=== PATIENT | male | born 1950 | race Caucasian/White ===

== ENCOUNTER 2017-08-22 23:31 | Emergency (ER) | payer OTHER ==
[~2017-08-22] VITALS: Ht 177.8 cm; Wt 93.0 kg
[2017-08-22] MEDS ORDERED: TOPROL XL100 MG (23:44)
[2017-08-22] MEDS ORDERED: COZAAR 50 MG TA50 M2 (23:47)
[2017-08-22] MEDS ORDERED: ASPIRIN325 (23:47)
[2017-08-22] MEDS ORDERED: ALLOPURINOL 10100 M1 (23:48)
[2017-08-22] MEDS ORDERED: ACYCLOVIR 400400 MG (23:48)
[2017-08-22] MEDS ORDERED: ONDANSETRON HCL4 M2 (23:50)
[2017-08-22] MEDS ORDERED: TESSALON PERLE100 MG (23:51)
[2017-08-22] MEDS ORDERED: DEXAMETHASONE 44 M1 (23:52)
[2017-08-22] MEDS ORDERED: REVLIMID25 MG (23:53)
[2017-08-23 00:17] LABS: ABSOLUTE BASOPHILS 0.1 thou/uL (0.0-0.2); ABSOLUTE LYMPHOCYTES 1.7 thou/uL (0.8-5.3); ABSOLUTE MONOCYTES 0.9 thou/uL (0.0-1.2); EOSINOPHILS 0.8 %; HEMATOCRIT 30.5 % (42.0-52.0); HEMOGLOBIN 10.3 gm/dL (14.0-18.0); LYMPHOCYTES 29.6 %; MCH 31.2 pg (26.0-34.0); MCHC 33.8 g/dL (28.0-37.0); MCV 92.4 fL (80.0-100.0); MONOCYTES 16.4 %; MPV 8.2 fl. (7.2-11.1); NUCLEATED RBCS 0 /100WBC; PLATELET COUNT* 148 thou/uL (150-400); POLYS 52.2 %; RBC 3.31 mil/uL (4.50-6.00); RDW-CV 19.9 % (10.5-14.5); WBC 5.7 thou/uL (4.0-11.0)
[2017-08-23 00:34] VITALS: BP 130/70
[2017-12-21] MEDS ORDERED: ALPHA LIPOIC AC50 M1 PO (14:08)
[2017-12-21] MEDS ORDERED: ONDANSETRON HCL4 M2 PO (14:08)
[2017-12-21] MEDS ORDERED: MEGESTROL400 MG/11 PO (14:08)
== END 2017-08-23 00:34 | disposition home or self-care (01) ==
LOC: M.ERS 23:31
PROVIDERS: Physician Assistant
DX: K94.01 Colostomy hemorrhage (principal); I10 Essential (primary) hypertension; Z90.49 Acquired absence of other specified parts of digestive tract; Z85.038 Personal history of other malignant neoplasm of large intestine

== ENCOUNTER → 2017-12-21 | Emergency (ER) | payer OTHER ==
[~2017-12-21] VITALS: Ht 177.8 cm; Wt 77.1 kg
[~2017-12-21] MED LIST: ACYCLOVIR 400400 MG; ALLOPURINOL 10100 M1; ALPHA LIPOIC AC50 M1 PO; ASPIRIN325; COZAAR 50 MG TA50 M2; DEXAMETHASONE 44 M1; MEGESTROL400 MG/11 PO; ONDANSETRON HCL4 M2; ONDANSETRON HCL4 M2 PO; REVLIMID25 MG; TESSALON PERLE100 MG; TOPROL XL100 MG
[2017-12-21 14:34] LABS: ABSOLUTE EOSINOPHILS 0.1 thou/uL (0.0-0.7); ABSOLUTE LYMPHOCYTES 0.8 thou/uL (0.8-5.3); ABSOLUTE MONOCYTES 0.6 thou/uL (0.0-1.2); ABSOLUTE NEUTROPHILS 2.9 thou/uL (1.6-8.1); BASOPHILS 0.9 %; EOSINOPHILS 1.6 %; HEMATOCRIT 42.7 % (42.0-52.0); HEMOGLOBIN 14.4 gm/dL (14.0-18.0); LYMPHOCYTES 17.8 %; MCH 30.7 pg (26.0-34.0); MCHC 33.6 g/dL (28.0-37.0); MCV 91.4 fL (80.0-100.0); MONOCYTES 13.5 %; MPV 8.8 fl. (7.2-11.1); NUCLEATED RBCS 0 /100WBC; PLATELET COUNT* 124 thou/uL (150-400); POLYS 66.2 %; RBC 4.68 mil/uL (4.50-6.00); RDW-CV 16.3 % (10.5-14.5); WBC 4.4 thou/uL (4.0-11.0)
[2017-12-21 14:38] LABS: URINE BILIRUBIN NEGATIVE (Negative); URINE BLOOD TRACE (Negative); URINE CLARITY CLEAR; URINE COLOR DARK YELLOW; URINE GLUCOSE-RANDOM NEGATIVE (Negative); URINE KETONES TRACE (Negative); URINE LEUKOCYTES-REFLEX NEGATIVE (Negative); URINE NITRITE-REFLEX NEGATIVE (Negative); URINE PROTEIN NEGATIVE (Negative); URINE SPECIFIC GRAVITY >= 1.030 (1.005-1.030); URINE UROBILINOGEN 0.2 E.U./dl (0.2-1.0)
[2017-12-21 14:42] LABS: ANION GAP 17 mmol/L (7-16); BUN 18 mg/dL (7-18); CALCIUM 9.3 mg/dL (8.5-10.1); CHLORIDE 100 mmol/L (98-107); CO2 20 mmol/L (21-32); CREATININE 1.3 mg/dL (0.6-1.3); GLUCOSE 126 mg/dL (70-99); POTASSIUM 3.6 mmol/L (3.5-5.1); SODIUM 137 mmol/L (136-145)
[2017-12-21 14:52] LABS: ALBUMIN 3.9 g/dL (3.4-5.0); ALKALINE PHOSPHATASE 84 U/L (46-116); LIPASE 195 U/L (73-393); NT-PRO BRAIN NAT PEPTIDE 93 pg/mL (<300); SGOT 23 U/L (15-37); SGPT 41 U/L (30-65); TOTAL PROTEIN 7.6 g/dL (6.4-8.2); TROPONIN-I LEVEL <0.06 ng/mL (<0.06)
[2017-12-21 15:52] VITALS: BP 158/86
--- NOTE | 2017-12-22 14:46 | EKG ---
[place] [address] ELECTROCARDIOGRAM REPORT Name: MARYANN OSPINA JR Room: [employer]#: [id number] Admission: 12/21/17 Attend Phys: Discharge: Date of : 48 Report #: [id number] THIS REPORT FOR: //name// [facility] ED Test Date: 2017-12-21 Test Time: 14:31:05 Pat Name: MARYANN ADAMERUSSELLBal Department: Room: Gender: Policy Director: [place] : 1950 Requested By: Glory Padilla Order Number: [id number] MD: Aaron Samson Measurements Intervals [place] Rate: 99 P: 65 [place]: 143 QRS: 50 QRSD: 72 T: 30 QT: 343 QTc: 441 Interpretive Statements Sinus rhythm Borderline repolarization abnormality Baseline wander in lead(s) I,III,aVL,aVF No previous ECG available for comparison Electronically Signed On 12-22-2017 14:45:50 CDT by Aaron Samson [email or web address] <ELECTRONICALLY SIGNED> By: Aaron Samson MD, [facility] 12/22/17 1445 1431 1431 Aaron Samson MD, FACC /EPI
== END ==
LOC: M.ERS 14:01
PROVIDERS: Nurse Practitioner
DX: R10.13 Epigastric pain (principal); I10 Essential (primary) hypertension; Z90.49 Acquired absence of other specified parts of digestive tract

== ENCOUNTER → 2018-01-09 | Outpatient (CLI) | payer OTHER ==
[2018-01-09 08:35] LABS: ABSOLUTE LYMPHOCYTES 1.4 thou/uL (0.8-5.3); ABSOLUTE MONOCYTES 0.9 thou/uL (0.0-1.2); ABSOLUTE NEUTROPHILS 4.2 thou/uL (1.6-8.1); BASOPHILS 0.5 %; EOSINOPHILS 0.6 %; HEMATOCRIT 47.7 % (42.0-52.0); LYMPHOCYTES 21.6 %; MCH 31.7 pg (26.0-34.0); MCHC 33.5 g/dL (28.0-37.0); MCV 94.8 fL (80.0-100.0); MONOCYTES 13.2 %; MPV 8.6 fl. (7.2-11.1); NUCLEATED RBCS 0 /100WBC; PLATELET COUNT* 197 thou/uL (150-400); POLYS 64.1 %; RBC 5.03 mil/uL (4.50-6.00); RDW-CV 16.2 % (10.5-14.5); WBC 6.5 thou/uL (4.0-11.0)
[2018-01-09 08:42] LABS: CALCIUM 10.2 mg/dL (8.5-10.1); CREATININE 1.2 mg/dL (0.6-1.3)
== END ==
LOC: M.LAB 06:54
PROVIDERS: Anesthesiology
DX: C90.00 Multiple myeloma not having achieved remission (principal)

== ENCOUNTER → 2018-01-16 | Outpatient (CLI) | payer OTHER | LOC: M.NUC 06:42 | DX: K31.84 Gastroparesis (principal) ==

== ENCOUNTER → 2018-01-17 | Outpatient (CLI) | payer OTHER | LOC: M.LAB 01-14 08:30 → M.CT 01-14 09:30 → M.LAB 01-16 12:00 → M.CT 09:02 | DX: K80.20 Calculus of gallbladder without cholecystitis without obstruction (principal); N28.9 Disorder of kidney and ureter, unspecified; M16.11 Unilateral primary osteoarthritis, right hip; M47.816 Spondylosis without myelopathy or radiculopathy, lumbar region; R63.4 Abnormal weight loss; Z85.79 Personal history of other malignant neoplasms of lymphoid, hematopoietic and related tissues ==

== ENCOUNTER 2018-06-24 11:48 | Inpatient (IN) | payer OTHER ==
[~2018-06-24] VITALS: Ht 175.3 cm; Wt 63.2 kg
--- NOTE | ~2018-06-24 | CON ---
[address] [address] CONSULTATION Name: SHEABalMARYANN JR Room: [address] IN .R.#: [id number] Admission: 06/24/18 Attend Phys: Mima Pereira Discharge: Date of : 48 Report #: [id number] THIS REPORT FOR: //name// CC: Gina Severino HISTORY OF PRESENT ILLNESS: The patient is a 68-year-old male who recently underwent a stem cell transplant for multiple myeloma. The patient states that in the past month, he has just become weaker and weaker, but even prior to that, the patient had a significant weight loss. He has lost approximately 40 pounds. I had some difficulty determining over what time this weight loss occurred. He told me that it had occurred over several months and then at one point, he told me it occurred over 1 or 2-month period and he is still losing weight. He states that whenever he tries to eat, he feels full. He has had some vomiting. When I spoke to the patient, he was about to have an EGD. The patient also states that he is just generally weak. Most of the weakness is in the lower extremities. He states that prior to the stem cell transplant. He was active, but for the past month has done nothing more than go from his chair to the bathroom. PAST MEDICAL HISTORY: Multiple myeloma. PAST SURGICAL HISTORY: Stem cell transplant, appendectomy. MEDICATIONS: Alpha lipoic acid 50 mg daily, ondansetron 4 mg p.r.n., nystatin swish and swallow four times a day, escitalopram 20 mg daily, trimethoprim 25 grams daily. ALLERGIES: ACYCLOVIR. PHYSICAL EXAMINATION: VITAL SIGNS: Temperature is 36.7, pulse rate 90, respiratory rate 16, blood pressure 105/59, bedside pulse oximetry 99% on room air. LABORATORY DATA: Hematology: White blood cell count 6.6, hemoglobin 13.3, hematocrit 39.8, MCV 96.7, platelet count 87,000. Urinalysis not received. Chemistry: Sodium 132, potassium 4.7, chloride 99, carbon dioxide 23, BUN 34, creatinine 1.7, GFR 40, glucose 132, calcium 9.6, magnesium 1.8, total bilirubin 0.8, AST 30, ALT 36, alkaline phosphatase 335, total protein 9.4, albumin 3.4. NEUROLOGIC: Cranial nerves 2-12 are grossly intact. Motor exam demonstrates symmetrical strength in the upper and lower extremities. The patient was able to raise his arms above his head. He was able to lift his legs from the bed. Reflexes are trace in the upper and lower extremities. Plantar responses are flexor. Coordination demonstrates no evidence of dysmetria. [place] [address] CONSULTATION Name: SHEAMARYANN Selby Room: [address] IN [facility]#: [id number] Admission: 06/24/18 Attend Phys: Mima Pereira Discharge: Date of : 48 Report #: [id number] IMPRESSION AND PLAN: The patient has an MRI of the head ordered; however, I have ordered an MRI of the total spine to make certain that he does not have some type of compression abnormality causing the weakness. I suspect there is also a component of debility because the patient has done very little in the way of physical exercise in the past month. He freely admits that he has been sitting and only getting up from the chair to do the most basic of daily activities. Therapy has been ordered and this should be very important. Rehabilitation has also been consulted. I have also ordered B12 and thyroid just to make certain there is nothing else that would cause the generalized weakness. Thank you for your kind referral of the patient and will continue to follow him with you. By: 1059 1135Emma Batres DO /nt
[2018-06-24 11:49] VITALS: BP 121/71
[2018-06-24] MEDS ORDERED: NYSTATIN100000 UNI SW&SWALLOW (11:58)
[2018-06-24] MEDS ORDERED: LEXAPRO 10 MG T10 M1 PO (11:59)
[2018-06-24] MEDS ORDERED: [UNRECOGNIZED DRUG - OTHER] PO (12:01)
[2018-06-24 12:43] LABS: HEMATOCRIT 39.8 % (42.0-52.0); HEMOGLOBIN 13.3 gm/dL (14.0-18.0); MCH 32.2 pg (26.0-34.0); MCHC 33.3 g/dL (28.0-37.0); MCV 96.7 fL (80.0-100.0); NUCLEATED RBCS 0 /100WBC; PLATELET COUNT* 87 thou/uL (150-400); RBC 4.12 mil/uL (4.50-6.00); RDW-CV 17.5 % (10.5-14.5); WBC 6.6 thou/uL (4.0-11.0)
[2018-06-24 12:58] LABS: CALCIUM 9.6 mg/dL (8.5-10.1); CREATININE 1.7 mg/dL (0.6-1.3); POTASSIUM 4.7 mmol/L (3.5-5.1)
[2018-06-24 13:03] LABS: ABSOLUTE EOSINOPHILS 0.1 thou/uL (0.0-0.7); ABSOLUTE LYMPHOCYTES 0.7 thou/uL (0.8-5.3); ABSOLUTE MONOCYTES 0.5 thou/uL (0.0-1.2); ABSOLUTE NEUTROPHILS 5.3 thou/uL (1.6-8.1); ALBUMIN 3.4 g/dL (3.4-5.0); ANISOCYTOSIS 1+; PLATELET ESTIMATE DECREASED; TOTAL BILIRUBIN 0.8 mg/dL (<0.1-1.0); TOTAL PROTEIN 6.4 g/dL (6.4-8.2)
[2018-06-24 14:08] VITALS: BP 117/63
[2018-06-24 14:25] VITALS: BP 112/66
--- NOTE | 2018-06-24 16:27 | EKG ---
[place] [address] ELECTROCARDIOGRAM REPORT Name: MARYANN OSPINA JR Room: [address] ADM IN M.R.#: [id number] Admission: 06/24/18 Attend Phys: Mima Pereira Discharge: Date of : 48 Report #: [id number] THIS REPORT FOR: //name// [facility] ED Test Date: 2018-06-24 Test Time: 11:56:31 Pat Name: MARYANN OSPINA Department: Room: [address] Gender: M [employer] Member: Will MAXWELL : 1950 Requested By: Kerry Laura Order Number: [id number] Dontae MD: Michael Hair Measurements Intervals [place] Rate: 118 P: 84 [place]: 163 QRS: 73 QRSD: 100 T: 71 QT: 324 QTc: 455 Interpretive Statements Sinus tachycardia Right atrial enlargement, possible Borderline ST elevation, anterior leads Artifact in lead(s) II,III,aVF Compared to ECG 12/21/2017 14:31:05 Atrial abnormality now present ST (T wave) deviation now present Sinus rhythm no longer present Electronically Signed On 06-24-2018 16:27:15 STAFF NURSE MIDWIFE by Michael Hair [email or web address] <ELECTRONICALLY SIGNED> By: Michael Hair MD, FACC 06/24/18 1627 1156 1156 Michael Hair MD, FACC /EPI
[2018-06-24 16:52] VITALS: BP 107/63
[2018-06-24 20:00] VITALS: BP 105/59
[2018-06-25 08:35] VITALS: BP 105/59
[2018-06-25 16:00] VITALS: BP 141/68
[2018-06-25 16:20] VITALS: BP 139/72
[2018-06-25 16:34] VITALS: BP 139/72
[2018-06-25 16:58] VITALS: BP 139/76
--- NOTE | 2018-06-27 14:07 | PATH ---
[address] [address] PATHOLOGY RPT PROCEDURE Name: CM OSPINA Room: [address] IN M.R.#: [id number] Admission: 06/24/18 Date of : 48 Discharge: 06/25/18 Report #: [id number] Path Case #: [id number] [facility] Accession Number: [id number] . 01 Material submitted: . PART A: SMALL BOWEL BIOPSY RULE OUT GVHD PART B: GASTRIC BIOPSY RULE OUT GVHD . 01 Clinical history: . None provided . 02 Diagnosis: A. Small bowel biopsy: - Benign small intestinal mucosa with nonspecific ulceration, negative for granulomas, viral inclusions and dysplasia. See comment. . B. Gastric biopsy: - Nonspecific, focal active gastritis, negative for granulomas, Helicobacter pylori organisms and dysplasia. See comment. . (ALBERT:manohar; 06/26/18) QL/06/26/2018 . 02 Comment: Although not specific for it, the small intestine and gastric biopsies both show features which can be seen with xnwdl-eexkry-rdtp disease. There is no significant basal lymphoplasmacytosis in the small intestinal biopsy to elevate a suspicion for Crohn's disease, although this also cannot be entirely excluded. . Special stain (B): H. pylori immuno. . (ALBERT:mml; 06/26/18) . 02 Electronically signed: . Dean Rojas MD, Pathologist NPI- [id number] . 01 Gross description: . A. Received in formalin labeled "Cm Ospina Jr, small bowel biopsy, rule out GVHD," are multiple segments of rosenberg soft tissue measuring 1.5 x 0.4 x 0.1 cm in aggregate dimensions. The specimen is filtered and entirely submitted in cassette A1. . B. Received in formalin labeled "Cm Ospina Jr, gastric biopsy, rule out GVHD," are 3 segments of rosenberg soft tissue measuring 1.2 x 1.0 x 0.2 cm in aggregate dimensions and ranging from 0.3 to 0.8 cm in maximum dimension. The specimen is submitted entirely [place] [address] PATHOLOGY RPT PROCEDURE Name: CM OSPINA JR Room: [address] IN M.R.#: [id number] Admission: 06/24/18 Date of : 48 Discharge: 06/25/18 Report #: [id number] Path Case #: [id number] (TSD; 06/25/2018) TOB/TOB . 02 Pathologist provided ICD-10: K63.3, K29.60 . 02 CPT . 837666, 095620, P56381 Specimen Comment: A courtesy copy of this report has been sent to Specimen Comment: [phone], , . Specimen Comment: Report sent to ,DR LINN / DR LAYTON Specimen Comment: A duplicate report has been generated due to demographic updates. Performed at: 01 [facility] [address], [place], [place] [id number] MD Tu Melo MD Phone: [phone] Performed at: [address] [facility] [place] [address] [place], [place] [id number] MD Dean Rojas MD Phone: [phone]
== END 2018-06-25 17:07 | disposition short-term general hospital (02) | DRG 64 ==
LOC: M.ERS 11:48 → M.ORTHSURG 13:29 → M.TBA-ER 13:29 → M.ORTHSURG 13:59
PROVIDERS: Personal Emergency Response Attendant; ADMIT Internal Medicine
PROC: 0DB68ZX Excision of Stomach, Via Natural or Artificial Opening Endoscopic, Diagnostic (ICD-10-PCS; principal; 2018-06-25)
PROC: 0DB98ZX Excision of Duodenum, Via Natural or Artificial Opening Endoscopic, Diagnostic (ICD-10-PCS; principal; 2018-06-25)
DX: I62.00 Nontraumatic subdural hemorrhage, unspecified (principal); N17.0 Acute kidney failure with tubular necrosis; C90.00 Multiple myeloma not having achieved remission; Z94.84 Stem cells transplant status; K26.9 Duodenal ulcer, unspecified as acute or chronic, without hemorrhage or perforation; I12.9 Hypertensive chronic kidney disease with stage 1 through stage 4 chronic kidney disease, or unspecified chronic kidney disease; N18.3 Chronic kidney disease, stage 3 (moderate); R63.4 Abnormal weight loss; R68.81 Early satiety; Z68.20 Body mass index [BMI] 20.0-20.9, adult; Z85.038 Personal history of other malignant neoplasm of large intestine; Z90.49 Acquired absence of other specified parts of digestive tract; Z79.899 Other long term (current) drug therapy; Z88.8 Allergy status to other drugs, medicaments and biological substances

== ENCOUNTER 2018-07-01 16:20 | Inpatient (IN) | payer OTHER ==
[~2018-07-01] VITALS: Ht 175.3 cm; Wt 63.0 kg
[~2018-07-01 16:20] MED LIST changes: +LEXAPRO 10 MG T10 M1 PO; +NYSTATIN100000 UNI SW&SWALLOW; +[UNRECOGNIZED DRUG - OTHER] PO
[2018-07-01 16:25] VITALS: BP 135/81
[2018-07-01] MEDS ORDERED: TYLENOL325 MG PO (16:30)
[2018-07-01] MEDS ORDERED: OXYCODONE HCL 55 MG PO (16:31)
[2018-07-01] MEDS ORDERED: LOPERAMIDE 2 MG2 M1 PO (16:31)
[2018-07-01] MEDS ORDERED: KEPPRA 500 MG500 M1 PO (16:31)
[2018-07-01] MEDS ORDERED: AFRIN15 ML NASAL (16:32)
[2018-07-01] MEDS ORDERED: BACTRIM DS TAB1 EACH PO (16:33)
[2018-07-01] MEDS ORDERED: PRESERVISION A1 EAC2 PO (16:33)
[2018-07-01] MEDS ORDERED: UNICOMPLEX M TA1 TA1 PO (16:33)
[2018-07-01] MEDS ORDERED: VALACYCLOVIR500 MG PO (16:33)
[2018-07-01 17:23] LABS: ABSOLUTE BASOPHILS 0.1 thou/uL (0.0-0.2); ABSOLUTE EOSINOPHILS 0.1 thou/uL (0.0-0.7); ABSOLUTE LYMPHOCYTES 0.4 thou/uL (0.8-5.3); ABSOLUTE MONOCYTES 0.5 thou/uL (0.0-1.2); ABSOLUTE NEUTROPHILS 5.8 thou/uL (1.6-8.1); BASOPHILS 0.9 %; EOSINOPHILS 0.7 %; HEMATOCRIT 33.7 % (42.0-52.0); HEMOGLOBIN 11.5 gm/dL (14.0-18.0); LYMPHOCYTES 6.3 %; MCH 32.8 pg (26.0-34.0); MCHC 34.1 g/dL (28.0-37.0); MCV 96.4 fL (80.0-100.0); MONOCYTES 6.9 %; MPV 7.9 fl. (7.2-11.1); NUCLEATED RBCS 0 /100WBC; PLATELET COUNT* 103 thou/uL (150-400); POLYS 85.2 %; RDW-CV 16.8 % (10.5-14.5); WBC 6.8 thou/uL (4.0-11.0)
[2018-07-01 17:32] LABS: CALCIUM 9.1 mg/dL (8.5-10.1); CREATININE 1.1 mg/dL (0.6-1.3); INR 1.1; POTASSIUM 4.3 mmol/L (3.5-5.1); PROTIME 11.3 Seconds (9.20-11.50)
[2018-07-01 17:36] LABS: TOTAL BILIRUBIN 0.7 mg/dL (<0.1-1.0)
[2018-07-01 19:38] LABS: URINE BILIRUBIN NEGATIVE (Negative); URINE BLOOD NEGATIVE (Negative); URINE CLARITY CLEAR; URINE COLOR YELLOW; URINE GLUCOSE-RANDOM NEGATIVE (Negative); URINE KETONES NEGATIVE (Negative); URINE LEUKOCYTES-REFLEX NEGATIVE (Negative); URINE NITRITE-REFLEX NEGATIVE (Negative); URINE PROTEIN NEGATIVE (Negative); URINE SPECIFIC GRAVITY >= 1.030 (1.005-1.030); URINE UROBILINOGEN 0.2 E.U./dl (0.2-1.0)
[2018-07-01 19:45] VITALS: BP 128/80
[2018-07-01 20:30] VITALS: BP 149/66
--- NOTE | 2018-07-01 23:32 | NUR ---
PT ADMITTED TO ROOM 104 AT 2015 FOR WEAKNESS AND FALL. PT ALERT AND ORIENTED X4, DENIES PAIN OR DISCOMFORT. PT DENIES VISUAL DISTURBANCE OR VERIGO. PT TRANSFERERED FROM [place] TO BED WITH ASSIST BY STAFF. PT HAS SMALL ABRAISION ON FORHEAD WHERE HE HIT HEAD DURING FALL AT HOME. PT REPORTED MILD HEADACH RATED AT [address] WYATT ON UNIT. RECIEVED ORDER FOR TYLENOL PRN. PT GIVEN 650 NG TYLENOL PO. PT RESTING QUIETLY IN BED AT THIS TIME. PT INSTRUCTED TTO CALL FOR ASSISTANCE BEFORE GETTING UP. CALL IGHT IN REACH, PT USING APPROPRIATELY.
[2018-07-02 00:32] VITALS: BP 106/60
[2018-07-02 03:49] VITALS: BP 115/55
[2018-07-02 09:45] VITALS: BP 112/63
[2018-07-02 12:56] VITALS: BP 100/67
--- NOTE | 2018-07-02 16:11 | NUR ---
SPOKE WITH PT.AND AT BEDSIDE. PT.UP IN CHAIR. HE WAS ALERT AND ORIENTED. STATED HE WAS DISCHARGED YESTERDAY FROM AND FELL A LITTLE WHILE LATER WALKING UP THE STEPS. LIVES WITH HIS . HE USES A WALKER AND HAS A WC. HE WOULD LIKE TO GO TO OUR INPT.REHAB UNIT. EXPLAINED INSURANCE WILL NEED TO AUTHORIZE HIM TO GO TO INPT.REHAB. ASKED WHAT IF THEY SAY NO. TOLD HER WE WOUDL NEED TO HAVE A PLAN B,SUCH A NURSING FACILITY. INFORMED THEM OF [facility] CONTRACTED FACILITIES. CM WILL FOLLOW.
[2018-07-02 16:13] VITALS: BP 110/68
--- NOTE | 2018-07-02 16:54 | NUR ---
RECEIVED CONSULT FOR POSSIBLE REHAB ADMISSION. CONSULT HAS BEEN ACKNOWLEDGED BY IN FLIGHT REFUELING MANAGER AND DR. CIFUENTES. PATIENT ADMITTED AFTER ALL FALL DOWN SOME STAIRS AT HOME STRIKING HIS HEAD. PATIENT WAS JUST DISCHARGED 2 DAYS AGO FROM [facility] AFTER BEING TREATED FOR A SDH. FURTHER MEDICAL WORKUP IS PENDING. PT/OT/ST EVALUATIONS PENDING. WILL FOLLOW. THANK YOU FOR THIS CONSULT.
--- NOTE | 2018-07-02 17:55 | NUR ---
ASSUMED CARE OF PATIENT AFTER MORNING REPORT AT APPROX 0720. ALERT AND ORIENTED X4. ASSESSMENT COMPLETED AND CHARTED. VSS ON ROOM AIR. NO COMPLAINTS OF PAIN, NAUSEA, OR SOA. NEUTROPENIC PRECAUTIONS IN PLACE. NO NEUROLOGICAL CHANGES THROUGHOUT SHIFT. PATIENT RESTED COMFORTABLY IN BED AND IN THE CHAIR TODAY. HOURLY ROUNDS MAINTAINED, CALL LIGHT WITHIN REACH, NURSING WILL CONTINUE TO MONITOR.
[2018-07-02 20:00] VITALS: BP 128/65
--- NOTE | 2018-07-03 04:11 | NUR ---
ASSUMED PATIENT CARE AT 1900. PATIENT IS A VERY PLEASANT MALE, ALERT AND ORIENTED TIMES FOUR. NO COMPLAINTS OF PAIN OR DISCOMFORT NOTED. USES URINAL. RESTED IN BED THROUGHOUT THE NIGHT. NEUTROPENIC PRECAUTIONS MAINTAINED THROUGH SHIFT. IV PATENT. FALL RISK PRECAUTIONS IN PLACE. HOURLY ROUNDING COMPLETED DOCUMENTED. HEBREW CANTOR COMPLETED DOCUMENTED.
[2018-07-03 04:39] LABS: HEMATOCRIT 28.9 % (42.0-52.0); HEMOGLOBIN 9.9 gm/dL (14.0-18.0); MCHC 34.2 g/dL (28.0-37.0); MCV 96.3 fL (80.0-100.0); MPV 8.4 fl. (7.2-11.1); RDW-CV 16.9 % (10.5-14.5); WBC 4.5 thou/uL (4.0-11.0)
[2018-07-03 04:44] LABS: CALCIUM 8.6 mg/dL (8.5-10.1); CREATININE 0.9 mg/dL (0.6-1.3); POTASSIUM 3.6 mmol/L (3.5-5.1)
[2018-07-03 09:30] VITALS: BP 106/57
--- NOTE | 2018-07-03 12:12 | NUR ---
NEW ORDER RECEIVED FOR COGNITIVE EVALUATION. PT TOLD ST THAT COGNITIVE AND SWALLOW EVALS COMPLETED YESTERDAY. ST VISITED WITH RN, WHO STATED NO CHANGE SINCE ORDERS YESTERDAY. DUPLICATE ORDER. NO ST RECOMMENDED AT THIS TIME. EDUCATION PROVIDED TO PT AND FAMILY THAT PT IS REHAB CONSULT AND ST MAY RE-EVALUATE IF TRANSFERRED TO REHAB FLOOR TO FACILITATE SAFE RETURN HOME TO [facility].
[2018-07-03 12:19] VITALS: BP 100/59
--- NOTE | 2018-07-03 15:00 | NUR ---
AWAITNG INSURANCE AUTH FOR PT.TO GO TO REHAB. DISCUSSED WITH PT., AND CHILDREN. GAVE AND DISCUSSED LIST OF SNFS THAT CONTRACT WITH HIS INSURANCE AND ALSO A BROCHURE ON [employer]. THEY SAID THEY WOULD LOOK AT INFORMATION IN CASE INSURANCE DENIES ACUTE INPT.REHAB.
[2018-07-03 16:20] VITALS: BP 109/57
--- NOTE | 2018-07-03 16:30 | NUR ---
RECEIVED CONSULT FOR POSSIBLE REHAB ADMISSION. CONSULT HAS BEEN ACKNOWLEDGED BY TAB CUTTER AND DR. CIFUENTES. PATIENT HAD RECENT SDH WITH [facility]. PATIENT FELL GOING UP HIS STAIRS AT HOME STRIKING HIS HEAD APPROXIMATELY 2 HOURS AFTER BEING DISCHARGED FROM OUT[facility]IDE HOSPITAL FROM SDH STAY. PATIENT DX WITH CLOSED HEAD INJURY HE IS DEBLITATED WITH THERAPY NEEDS. RECOMMEND INPT ACUTE REHAB FOR MEDICAL MANAGEMENT AND THERAPIES FOR STRENGTHENING AND ENDURANCE. HAVE INITIATED INSURANCE AUTH. CONTACTED [facility] AND INFORMED OF ACCEPTANCE TO REHAB PENDING INSURANCE AUTH. THANK YOU FOR THIS REFERRAL.
--- NOTE | 2018-07-03 17:22 | NUR ---
PT REMAINED ALERT AND ORIENTED. PT IS ON ROOM AIR. NEUTROPENIC PRECAUTIONS MAINTAINED. FOLIC ACID AND IV IRON SUCROSE GIVEN ORDERED. PT DENIED ANY PAIN, N/V THIS SHIFT. FALL RISK PRECAUTIONS IN PLACE. HOURLY ROUNDING COMPLETED. WILL CONTINUE TO MONITOR.
[2018-07-03 21:04] VITALS: BP 109/53
--- NOTE | 2018-07-04 04:59 | NUR ---
ASSUMED CARE OF PATIENT AFTER REPORT AT APPROX 1930. ALERT AND ORIENTED X4. ASSESSMENT COMPLETED AND CHARTED. VSS ON ROOM AIR. NO COMPLAINTS OF PAIN, NAUSEA, OR SOA. PATIENT VOIDING PER URINAL, COLOSTOMY CARE PROVIDED X2 THIS SHIFT. PATIENT RESTING COMFORTABLY IN BED UPON ROUNDS. HOURLY ROUNDS COMPLETED, CALL IGHT IN REACH, FALL PRECAUTIONS IN PLACE, NURSING WILL CONTNINUE TO MONITOR.
[2018-07-04 08:28] VITALS: BP 111/54
[2018-07-04 16:13] VITALS: BP 104/48
--- NOTE | 2018-07-04 16:39 | NUR ---
SPOKE WITH PT.AND . TOLD THEM, REHAB LIASON,HAS NOT HEARD BACK YET FROM INSURANCE ABOUT REHAB. DID SAY THEY WOULD GO TO [facility] IF INSURANCE SAYS NO TO REHAB. WILL FOLLOW.
--- NOTE | 2018-07-04 16:51 | NUR ---
PT REMAINED ALERT AND ORIENTED THIS SHIFT. PT IS SALINE LOCKED IN LT WRIST. NEUTROPENIC PRECAUTIONS MAINTAINED. FALL RISK PRECAUTIONS IN PLACE. HOURLY ROUNDING COMPLETED. AWAITING APPROVAL FOR REHAB PLACEMENT. WILL CONTINUE TO MONITOR.
--- NOTE | 2018-07-04 17:26 | NUR ---
CONTINUING TO FOLLOW PATIENT ALONG WITH DR. CIFUENTES. RECEIVED CALL FROM INSURANCE STATES INSURANCE AUTH IS PRELIMINARILY DENIED UNTIL REHAB PHYSICIAN CAN CALL AND SPEAK TO INSURANCE PHYSICIAN ON SATURDAY. NOTIFIED PATIENTS NURSE.
[2018-07-04 21:30] VITALS: BP 107/52
[2018-07-05 00:45] VITALS: BP 133/62
[2018-07-05 04:48] LABS: HEMATOCRIT 30.7 % (42.0-52.0); HEMOGLOBIN 10.3 gm/dL (14.0-18.0); MCH 32.5 pg (26.0-34.0); MCHC 33.7 g/dL (28.0-37.0); MCV 96.6 fL (80.0-100.0); RBC 3.17 mil/uL (4.50-6.00); WBC 6.9 thou/uL (4.0-11.0)
[2018-07-05 05:19] LABS: CALCIUM 8.9 mg/dL (8.5-10.1); POTASSIUM 4.2 mmol/L (3.5-5.1)
--- NOTE | 2018-07-05 05:57 | NUR ---
UP WITH WALKER, GAIT BELT AND 1 ASSIST. ALERT AND ORIENTED X4. REMAINS ON NUETROPENIC PRECAUTIONS. ILEOSTOMY LEAKING AND CHANGED DURING NIGHT. RESTING QUIETLY ON HOURLY ROUNDS. CALL LIGHT WITHIN REACH. WILL CONTINUE TO MONITOR.
[2018-07-05 08:50] VITALS: BP 117/71
[2018-07-05 16:00] VITALS: BP 114/63
--- NOTE | 2018-07-05 16:57 | NUR ---
pt remained alert and oriented this shift. pt colostomy bag leaked, new one applied today. pt denied any further needs this shift. fall risk precautions in place. hourly rounding completed. will continue to monitor.
[2018-07-05 20:00] VITALS: BP 115/63
--- NOTE | 2018-07-06 05:44 | NUR ---
ALERT AND ORIENTEDX4. AMBULATES TO BATHROOM WITH WALKER GAIT BELT AND 1 ASSIST. RESTING QUIETLY IN BED ON HOURLY ROUNDS. DENIES NEED FOR PAIN OR NAUSEA MEDICATIONS.ILEOSTOMY PATENT AT THIS TIME. REMAINS ON NEUTROPENIC PRECAUTIONS. CALL LIGHT WITHIN REACH.
[2018-07-06 08:00] VITALS: BP 114/65
[2018-07-06 16:02] VITALS: BP 106/65
--- NOTE | 2018-07-06 17:42 | NUR ---
PATIENT ALERT AND ORIENTED X 4. VITAL SIGNS STABLE ON ROOM AIR. AFEBRILE. UP WITH ASSIST OF ONE TO THE BATHROOM. IV PATENT AND SALINE LOCKED. DENIES PAIN AND NAUSEA. UP TO CHAIR FOR LUNCH AND DINNER. FALL PRECAUTIONS IN PLACE AND BED ALARM ON. HOURLY ROUNDS MAINTAINED THROUGHOUT THE SHIFT. CALL LIGHT WITHIN REACH. NURSING WILL CONTINUE TO MONITOR.
[2018-07-06 21:00] VITALS: BP 112/67
--- NOTE | 2018-07-07 06:02 | NUR ---
ALERT AND ORIENTED X4, UP WITH WALKER A GAIT BELT AND 1 ASSIST TO BATHROOM. ILEOSTOMY PATENT WITH SOFT BROWN STOOL. DENIES NEED FOR PAIN OR NAUSEA MEDICAITON. INCISION WITH JAYNA ON TOP OF HEAD HEALING WITH NO S/S OF REDNESS OR DRAINAGE. REMAINS ON NEUTOPENIC PRECAUTIONS. CALL LIGHT WITHIN REACH.
[2018-07-07 08:00] VITALS: BP 123/62
--- NOTE | 2018-07-07 12:18 | NUR ---
FAXED REFERRAL TO [facility] IN CASE INSURANCE CONTINUES TO DENY ACUTE REHAB. TO SPEAK WITH INSURANCE TODAY.
[2018-07-07 16:00] VITALS: BP 132/58
--- NOTE | 2018-07-07 16:28 | NUR ---
CONTINUING TO FOLLOW PATIENT ALONG WITH DR. CIFUENTES. INSURANCE DENIED ACUTE REHAB ADMISSION AND PEER TO PEER. APPEAL INITIATED. PATIENT CONTINUES TO PARTICIAPTE IN THERAPIES. WILL FOLLOW AND PLAN TO ADMIT TO REHAB PENDING APPEAL DECISION.
--- NOTE | 2018-07-07 16:59 | NUR ---
PT AWAITING REHAB PLACEMENT. PT UP IN CHAIR WITH SB ASSIST. TOLERATING PO WELL. ILEOSTOMY DRAINING LIQUID STOOL. UPDATED ON PLAN OF CARE
[2018-07-07 19:30] VITALS: BP 117/59
--- NOTE | 2018-07-07 21:03 | NUR ---
RECIEVED REPORT AND ASSUMED CARE OF PT AT 1930. PT RESTING QUIETLY IN BED WATCHING TV. PT DENIED PAIN OR DISCOMFORT. HS MEDS GIVEN PER EMAR. CALL LIGHT IN REACH, PT DEMONSTRATES PROPER USE.
[2018-07-08 04:08] LABS: HEMATOCRIT 33.6 % (42.0-52.0); HEMOGLOBIN 11.2 gm/dL (14.0-18.0); MCH 32.4 pg (26.0-34.0); MCHC 33.4 g/dL (28.0-37.0); MCV 97.2 fL (80.0-100.0); MPV 8.7 fl. (7.2-11.1); RBC 3.45 mil/uL (4.50-6.00); RDW-CV 17.3 % (10.5-14.5); WBC 5.1 thou/uL (4.0-11.0)
[2018-07-08 04:18] LABS: CALCIUM 9.3 mg/dL (8.5-10.1); CREATININE 1.2 mg/dL (0.6-1.3); POTASSIUM 4.2 mmol/L (3.5-5.1)
[2018-07-08 08:20] VITALS: BP 105/64; BP 111/62
[2018-07-08 15:29] VITALS: BP 105/54
--- NOTE | 2018-07-08 16:12 | NUR ---
PATIENT REMAINS ALERT AND ORIENTED. DENIES PAIN. TOLERATING DIET. SUPPLEMENTS ORDERED. UP WITH ASSIST OF 1,GB, AND WALKER. ILEOSTOMY INTACT WITH STOOL NOTED. VOIDING PER URINAL. AWAITING REHAB PLACEMENT. FAMILY AT BEDSIDE. WILL CONTINUE TO MONITOR.
[2018-07-08 20:00] VITALS: BP 107/62
--- NOTE | 2018-07-09 04:40 | NUR ---
PT A&Ox4. VITALS STABLE. OX 99% ON RA. UP TO BATHROOM WITH GAITBELT AND WALKER. ILIOSTOMY EMPTIED ON SHIFT. IV L HAND PATENT, SL. DENIED PAIN. SITE ON HEAD WHERE STAPLE WERE TAKEN OUT IS CLEAN, INTACT. SLEPT MOST OF THE NIGHT. CALL LIGHT WITHIN REACH. HOURLY ROUNDING COMPLETE. FALL PRECAUTIONS IN PLACE. WILL CONTINUE TO MONITOR.
--- NOTE | 2018-07-09 06:42 | NUR ---
REVIEWED AND AGREE WITH ALL ASSESSMENTS AND CHARTING COMPLETED BY VIVIENNE ORDOÑEZ.
[2018-07-09 08:36] VITALS: BP 119/75
--- NOTE | 2018-07-09 14:00 | NUR ---
[facility] SAID THEY ARE STILL WAITING ON RESULTS OF PEER TO PEER DENIAL APPEAL. NOTIFIED PT. AND .
[2018-07-09 15:47] VITALS: BP 108/71
--- NOTE | 2018-07-09 16:28 | NUR ---
PATIENT REMAINS ALERT AND ORIENTED. DENIES PAIN. PARTICIPATED WITH PT/OT. UP TO CHAIR THIS AFTERNOON. TOLERATING MEALS. IV REMOVED. SKIN INTACT. VSS. FAMILY AT BEDSIDE. STOOL EMPTIED FROM ILEOSTOMY X2. VOIDING PER TOILET OR URINAL. FALL PRECAUTIONS IN PLACE. CALL LIGHT WITHIN REACH. WILL CONTINUE TO MONITOR.
[2018-07-09 20:01] VITALS: BP 95/48
--- NOTE | 2018-07-10 06:04 | NUR ---
ASSUMED CARE OF PATIENT AFTER REPORT AT APPROX 1920. ALERT AND ORIENTED X4. ASSESSMENT COMPLETED AND CHARTED. VSS ON ROOM AIR. NO COMPLAINTS OF PAIN, NAUSEA, OR SOA THIS SHIFT. PATIENT OBSERVED RESTING COMFORTABLY IN BED THROUGHOUT ROUNDS. PATIENT VOIDED PER URINAL. HOURLY ROUNDS MAINTAINED. FALL PRECAUTIONS IN PLACE. CALL LIGHT WITHIN REACH. NURSING WILL CONTINUE TO MONITOR.
[2018-07-10 07:45] VITALS: BP 108/63
[2018-07-10 16:33] VITALS: BP 107/66
--- NOTE | 2018-07-10 16:37 | NUR ---
NO REHAB AUTH FROM INSURANCE PER [facility]/REHAB. DISCUSSED WITH PT.AND . THEY WOULD LIKE TO TRY TO GO TO [facility] FOR A SKILLED STAY INSTEAD OF WAITING ANY LONGER. MESSAGE LEFT FOR SHARATH AND FAXED HER UPDATED PROGRESS NOTES,P.T.AND O.T. ASSESSMENTS.
--- NOTE | 2018-07-10 19:32 | NUR ---
ALERT AND ORIENTED X4. UP WITH ASSIST X1 WITH WALKER AND GAIT BELT. NO IV AT THIS TIME. DENIES NEED FOR PAIN AND NAUSEA MEDICATION. TOLERATING DIET. ATTENDED THERAPIES THIS SHIFT. FAMILY AT BEDSIDE THROUGHOUT SHIFT. VSS ON ROOM AIR. HOURLY ROUNDS HAVE BEEN MAINTAINED THROUGHOUT SHIFT. CALL LIGHT IS WITHIN REACH. NURSING WILL CONTINUE TO MONITOR.
[2018-07-10 19:50] VITALS: BP 104/57
--- NOTE | 2018-07-11 03:42 | NUR ---
ASSUMED CARE OF PT AT 1900. PT IS ALERT AND ORIENTED. VSS. PERRLA. NO COMPLAINTS OF PAIN. UP WITH 1 ASSIST AND A WALKER. PT IS SLEEPING QUIETLY IN BED. RESPIRATIONS ARE EVEN AND NONLABORED. WILL CONTINUE TO MONITOR PT.
[2018-07-11 09:15] VITALS: BP 119/70
[2018-07-11 12:29] VITALS: BP 104/45
[2018-07-11] MEDS ORDERED: REMERON15 MG PO (15:00)
[2018-07-11] MEDS ORDERED: MELATONIN5 M1 PO (15:01)
[2018-07-11] MEDS ORDERED: FOLIC ACID1 MG PO (15:01)
[2018-07-11 15:24] VITALS: BP 104/45
--- NOTE | 2018-07-11 15:25 | NUR ---
[facility] CALLED AND HAS AUTHORIZATION FROM INSURANCE FOR A SKILLED BED THERE. THEIR [employer] VAN CAN PICK PT.UP AT 1800. [facility] WILL NOTIFIED FOR DISCHARGE ORDERS. CHART TO BE COPIED. REY HAS NUMBER TO CALL REPORT. PT.AND INFORMED.
[2018-07-11 17:05] VITALS: BP 94/62
--- NOTE | 2018-07-11 18:49 | NUR ---
PT REMAINED ALERT AND ORIENTED. PT COLOSTOMY BAG CHANGED TODAY. PT WILL BE LEAVING TO [facility] TODAY. [employer] CALLED TO REASSESS ETA AND WAS UNAWARE OF PT, NEW BL[employer] LEATHER TRIMMER TIME SCHEDULED FOR 1999. FALL RISK PRECAUTIONS IN PLACE. HOURLY ROUNDING COMPLETED. WILL CONTINUE TO MONITOR.
[2018-07-11 19:23] VITALS: BP 104/45
--- NOTE | 2018-07-11 19:27 | NUR ---
PT LEFT TO [facility]. CHART COPIED AND GIVEN TO TRANSPORTER. NO IV, WAS REMOVED PRIOR TO TODAY. FALL RISK PRECAUTIONS IN PLACE. HURLY ROUNDING COMPLETED. PT LEFT VIA WHEELCHAIR WITH NURSING STAFF AND TRANSPORTER TO SKILLED FACILITY.
== END 2018-07-11 19:29 | DRG 947 ==
LOC: M.ERS 16:20 → M.TBA-ER 18:18 → M.ORTHSURG 18:18
PROVIDERS: Family Medicine; Nurse Practitioner Family; ADMIT Internal Medicine
DX: R53.81 Other malaise (principal); E43 Unspecified severe protein-calorie malnutrition; Z94.84 Stem cells transplant status; I10 Essential (primary) hypertension; E53.8 Deficiency of other specified B group vitamins; E61.1 Iron deficiency; Z85.038 Personal history of other malignant neoplasm of large intestine; Z90.49 Acquired absence of other specified parts of digestive tract; Z88.8 Allergy status to other drugs, medicaments and biological substances; Z68.20 Body mass index [BMI] 20.0-20.9, adult; Z79.899 Other long term (current) drug therapy

== ENCOUNTER 2018-07-27 13:11 | Emergency (ER) | payer OTHER ==
[~2018-07-27] VITALS: Ht 175.3 cm; Wt 66.7 kg
[~2018-07-27 13:11] MED LIST changes: +AFRIN15 ML NASAL; +BACTRIM DS TAB1 EACH PO; +FOLIC ACID1 MG PO; +KEPPRA 500 MG500 M1 PO; +LOPERAMIDE 2 MG2 M1 PO; +MELATONIN5 M1 PO; +OXYCODONE HCL 55 MG PO; +PRESERVISION A1 EAC2 PO; +REMERON15 MG PO; +TYLENOL325 MG PO; +UNICOMPLEX M TA1 TA1 PO; +VALACYCLOVIR500 MG PO
[2018-07-27 13:48] LABS: HEMATOCRIT 31.6 % (42.0-52.0); HEMOGLOBIN 10.7 gm/dL (14.0-18.0); MCH 33.4 pg (26.0-34.0); MCHC 33.8 g/dL (28.0-37.0); MCV 98.7 fL (80.0-100.0); MPV 8.1 fl. (7.2-11.1); NUCLEATED RBCS 0 /100WBC; PLATELET COUNT* 67 thou/uL (150-400); RDW-CV 17.9 % (10.5-14.5)
[2018-07-27 13:58] LABS: CALCIUM 8.3 mg/dL (8.5-10.1); CREATININE 1.2 mg/dL (0.6-1.3); POTASSIUM 3.2 mmol/L (3.5-5.1)
[2018-07-27 14:12] LABS: ABSOLUTE LYMPHOCYTES 0.3 thou/uL (0.8-5.3); ABSOLUTE MONOCYTES 0.6 thou/uL (0.0-1.2); ABSOLUTE NEUTROPHILS 4.2 thou/uL (1.6-8.1); PLATELET ESTIMATE DECREASED
[2018-07-27 14:13] LABS: ALBUMIN 3.1 g/dL (3.4-5.0); ANISOCYTOSIS 1+; TOTAL BILIRUBIN 0.7 mg/dL (<0.1-1.0); TOTAL PROTEIN 5.6 g/dL (6.4-8.2)
[2018-07-27 15:12] LABS: URINE BILIRUBIN NEGATIVE (Negative); URINE BLOOD TRACE (Negative); URINE CLARITY CLEAR; URINE COLOR YELLOW; URINE GLUCOSE-RANDOM NEGATIVE (Negative); URINE KETONES NEGATIVE (Negative); URINE LEUKOCYTES-REFLEX NEGATIVE (Negative); URINE NITRITE-REFLEX NEGATIVE (Negative); URINE PROTEIN NEGATIVE (Negative); URINE SPECIFIC GRAVITY <= 1.005 (1.005-1.030); URINE UROBILINOGEN 0.2 E.U./dl (0.2-1.0)
[2018-07-27 15:31] LABS: INFLUENZA A ANTIGEN None Detected (None Detect); INFLUENZA B ANTIGEN None Detected (None Detect)
[2018-07-27] MEDS ORDERED: KEFLEX500 M1 PO (18:01)
[2018-07-27 18:56] VITALS: BP 126/65
== END 2018-07-27 18:57 | disposition home or self-care (01) ==
LOC: M.ERS 13:11
PROVIDERS: Emergency Medicine Emergency Medical Services
DX: R50.9 Fever, unspecified (principal); I10 Essential (primary) hypertension; Z88.8 Allergy status to other drugs, medicaments and biological substances; Z85.038 Personal history of other malignant neoplasm of large intestine; Z90.49 Acquired absence of other specified parts of digestive tract

== ENCOUNTER 2020-08-03 19:59 | Inpatient (IN) | payer OTHER ==
[~2020-08-03] VITALS: Ht 170.2 cm; Wt 90.7 kg
[~2020-08-03 19:59] MED LIST changes: +KEFLEX500 M1 PO
[2020-08-03 20:13] VITALS: BP 166/92
[2020-08-03] MEDS ORDERED: ACYCLOVIR 200200 MG PO (20:20)
[2020-08-03 20:52] LABS: HEMATOCRIT 50.6 % (42.0-52.0); HEMOGLOBIN 17.3 gm/dL (14.0-18.0); MCHC 34.2 g/dL (28.0-37.0); MCV 96.4 fL (80.0-100.0); MPV 14.7 fl. (7.2-11.1); NUCLEATED RBCS 0 /100WBC; RBC 5.25 mil/uL (4.50-6.00); RDW-CV 15.4 % (10.5-14.5); WBC 5.4 thou/uL (4.0-11.0)
[2020-08-03 20:59] LABS: PLATELET COUNT* 32 thou/uL (150-400)
[2020-08-03 21:01] LABS: CALCIUM 8.5 mg/dL (8.5-10.1); CREATININE 1.9 mg/dL (0.6-1.3); POTASSIUM 4.5 mmol/L (3.5-5.1)
[2020-08-03 21:04] LABS: APTT 26.1 Seconds (25.0-31.3); INR 1.1; PROTIME 11.7 Seconds (9.20-11.50)
[2020-08-03 21:04] LABS: URINE BILIRUBIN NEGATIVE (Negative); URINE BLOOD 2+ (Negative); URINE CLARITY CLEAR; URINE COLOR YELLOW; URINE GLUCOSE-RANDOM NEGATIVE (Negative); URINE KETONES NEGATIVE (Negative); URINE LEUKOCYTES-REFLEX NEGATIVE (Negative); URINE NITRITE-REFLEX NEGATIVE (Negative); URINE PROTEIN 3+ (Negative); URINE SPECIFIC GRAVITY 1.025 (1.005-1.030); URINE UROBILINOGEN 0.2 E.U./dl (0.2-1.0)
[2020-08-03 21:10] LABS: CRYSTALS None Seen /LPF (None Seen); HYALINE CASTS >10 Many /LPF (None Seen); MUCUS None Seen strn/LPF (None Seen); SQUAMOUS NONE SEEN /LPF (0-3)
[2020-08-03 21:11] LABS: URINE RBC 3-10 Few /HPF (0-2)
[2020-08-03 21:12] LABS: BACTERIA-REFLEX 1-9 Few /HPF (None Seen); URINE WBC-REFLEX None Seen /HPF (0-5)
[2020-08-03 21:13] LABS: ALBUMIN 3.2 g/dL (3.4-5.0); MAGNESIUM 3.6 mg/dL (1.8-2.4); TOTAL BILIRUBIN 1.5 mg/dL (<0.1-1.0); TOTAL PROTEIN 7.3 g/dL (6.4-8.2)
[2020-08-03 21:17] LABS: INFLUENZA A ANTIGEN Negative (Negative); INFLUENZA B ANTIGEN Negative (Negative)
[2020-08-03 22:00] LABS: ABSOLUTE EOSINOPHILS 0.1 thou/uL (0.0-0.7); ABSOLUTE LYMPHOCYTES 0.3 thou/uL (0.8-5.3); ABSOLUTE MONOCYTES 0.4 thou/uL (0.0-1.2); ABSOLUTE NEUTROPHILS 4.6 thou/uL (1.6-8.1)
[2020-08-03 22:02] LABS: GIANT PLATELETS OCCASIONAL; PLATELET ESTIMATE DECREASED
[2020-08-03 22:03] LABS: ANISOCYTOSIS 1+
[2020-08-04] VITALS (7 sets, daily range): BP systolic 120–155; BP diastolic 64–78
[2020-08-04 02:26] LABS: ABSOLUTE LYMPHOCYTES 0.3 thou/uL (0.8-5.3); ABSOLUTE MONOCYTES 0.3 thou/uL (0.0-1.2); ABSOLUTE NEUTROPHILS 3.7 thou/uL (1.6-8.1); BASOPHILS 0.5 %; EOSINOPHILS 0.6 %; HEMATOCRIT 43.5 % (42.0-52.0); LYMPHOCYTES 7.9 %; MCH 32.7 pg (26.0-34.0); MCHC 34.1 g/dL (28.0-37.0); MCV 95.8 fL (80.0-100.0); MONOCYTES 5.7 %; MPV 10.4 fl. (7.2-11.1); NUCLEATED RBCS 0 /100WBC; POLYS 85.3 %; RBC 4.55 mil/uL (4.50-6.00); RDW-CV 15.3 % (10.5-14.5); WBC 4.4 thou/uL (4.0-11.0)
[2020-08-04 02:33] LABS: HEMOGLOBIN 14.9 gm/dL (14.0-18.0)
[2020-08-04 02:35] LABS: PLATELET COUNT* 19 thou/uL (150-400)
[2020-08-04 02:48] LABS: ALBUMIN 2.4 g/dL (3.4-5.0); CALCIUM 7.3 mg/dL (8.5-10.1); CREATININE 1.5 mg/dL (0.6-1.3); POTASSIUM 4.4 mmol/L (3.5-5.1); TOTAL BILIRUBIN 1.4 mg/dL (<0.1-1.0); TOTAL PROTEIN 5.7 g/dL (6.4-8.2)
--- NOTE | 2020-08-04 13:39 | EKG ---
[place] [address] ELECTROCARDIOGRAM REPORT Name: MARYANN OSPINA JR Room: [place] [address] ADM IN .R.#: [id number] Admission: 08/03/20 Attend Phys: Josr Novak Discharge: Date of : 48 Date of Service: 08/03/202024 Report #: [id number] THIS REPORT FOR: //name// [facility] ED Test Date: 2020-08-03 Test Time: 20:25:54 Pat Name: MARYANN OSPINA Department: Room: [facility] Gender: M Machine Design Teacher: [place] : 1950 Requested By: Alfredo Palacio Order Number: [id number] MD: Michael Hair Measurements Intervals [place] Rate: 91 P: 30 WI: 156 QRS: 37 QRSD: 107 T: 80 QT: 377 QTc: 464 Interpretive Statements Sinus rhythm Baseline wander in lead(s) V6 Compared to ECG 06/24/2018 11:56:31 Sinus tachycardia no longer present ST (T wave) deviation no longer present Electronically Signed On 08-04-2020 13:38:54 HOSPITALITY SPECIALIST by Michael Hair [email or web address] <ELECTRONICALLY SIGNED> By: Michael Hair MD, FACC 08/04/20 1338 24 24 Michael Hair MD, FACC /EPI
[2020-08-05 05:06] LABS: ABSOLUTE LYMPHOCYTES 0.3 thou/uL (0.8-5.3); ABSOLUTE MONOCYTES 0.2 thou/uL (0.0-1.2); BASOPHILS 0.2 %; EOSINOPHILS 0.1 %; HEMATOCRIT 41.6 % (42.0-52.0); HEMOGLOBIN 13.9 gm/dL (14.0-18.0); LYMPHOCYTES 7.3 %; MCH 32.2 pg (26.0-34.0); MCHC 33.5 g/dL (28.0-37.0); MCV 96.1 fL (80.0-100.0); MONOCYTES 4.6 %; MPV 10.5 fl. (7.2-11.1); NUCLEATED RBCS 0 /100WBC; POLYS 87.8 %; RBC 4.33 mil/uL (4.50-6.00); RDW-CV 15.1 % (10.5-14.5); WBC 3.4 thou/uL (4.0-11.0)
[2020-08-05 05:18] LABS: PLATELET COUNT* 18 thou/uL (150-400)
[2020-08-05 05:20] LABS: CALCIUM 7.5 mg/dL (8.5-10.1); CREATININE 1.2 mg/dL (0.6-1.3); POTASSIUM 5.3 mmol/L (3.5-5.1)
[2020-08-05 05:30] VITALS: BP 153/79
[2020-08-05 09:00] VITALS: BP 156/75
[2020-08-05 15:55] VITALS: BP 160/80
[2020-08-05 20:00] VITALS: BP 179/91
[2020-08-06] VITALS: BP 156/80
[2020-08-06 04:00] VITALS: BP 146/72
[2020-08-06 05:35] LABS: HEMATOCRIT 39.7 % (42.0-52.0); HEMOGLOBIN 13.5 gm/dL (14.0-18.0); MCH 32.1 pg (26.0-34.0); MCHC 33.9 g/dL (28.0-37.0); MCV 94.7 fL (80.0-100.0); MPV 12.2 fl. (7.2-11.1); NUCLEATED RBCS 0 /100WBC; RBC 4.19 mil/uL (4.50-6.00); WBC 6.4 thou/uL (4.0-11.0)
[2020-08-06 05:50] LABS: ALBUMIN 2.3 g/dL (3.4-5.0); CALCIUM 7.4 mg/dL (8.5-10.1); CREATININE 1.3 mg/dL (0.6-1.3); PLATELET COUNT* 25 thou/uL (150-400); POTASSIUM 4.5 mmol/L (3.5-5.1); TOTAL PROTEIN 5.3 g/dL (6.4-8.2)
[2020-08-06 06:25] LABS: ABSOLUTE LYMPHOCYTES 0.8 thou/uL (0.8-5.3); ABSOLUTE MONOCYTES 0.1 thou/uL (0.0-1.2); ABSOLUTE NEUTROPHILS 5.5 thou/uL (1.6-8.1); ATYPICAL LYMPHS 6 %; METAMYELOCYTES 4 %; PLATELET ESTIMATE DECREASED
[2020-08-06 08:00] VITALS: BP 139/74
[2020-08-06 12:34] VITALS: BP 149/70
[2020-08-06 16:57] VITALS: BP 152/72
[2020-08-07] VITALS: BP 167/77
[2020-08-07 03:20] VITALS: BP 148/70
[2020-08-07 04:38] LABS: HEMATOCRIT 40.3 % (42.0-52.0); HEMOGLOBIN 13.6 gm/dL (14.0-18.0); MCH 32.2 pg (26.0-34.0); MCHC 33.9 g/dL (28.0-37.0); MCV 95.2 fL (80.0-100.0); MPV 12.3 fl. (7.2-11.1); RBC 4.23 mil/uL (4.50-6.00); RDW-CV 14.9 % (10.5-14.5); WBC 6.3 thou/uL (4.0-11.0)
[2020-08-07 04:57] LABS: ALBUMIN 2.3 g/dL (3.4-5.0); CALCIUM 7.2 mg/dL (8.5-10.1); CREATININE 1.2 mg/dL (0.6-1.3); POTASSIUM 4.4 mmol/L (3.5-5.1); TOTAL BILIRUBIN 0.8 mg/dL (<0.1-1.0); TOTAL PROTEIN 5.3 g/dL (6.4-8.2)
[2020-08-07 10:58] VITALS: BP 137/72
[2020-08-07 12:33] VITALS: BP 130/66
[2020-08-07 16:33] VITALS: BP 121/68
[2020-08-07 20:00] VITALS: BP 128/86
[2020-08-08] VITALS (7 sets, daily range): BP systolic 111–150; BP diastolic 50–75
[2020-08-08 04:32] LABS: HEMATOCRIT 39.9 % (42.0-52.0); HEMOGLOBIN 13.6 gm/dL (14.0-18.0); MCH 32.5 pg (26.0-34.0); MCHC 34.2 g/dL (28.0-37.0); MCV 95.2 fL (80.0-100.0); RBC 4.19 mil/uL (4.50-6.00); RDW-CV 15.4 % (10.5-14.5); WBC 6.6 thou/uL (4.0-11.0)
[2020-08-08 04:42] LABS: CALCIUM 7.4 mg/dL (8.5-10.1); CREATININE 1.3 mg/dL (0.6-1.3); POTASSIUM 4.3 mmol/L (3.5-5.1)
[2020-08-08] MEDS ORDERED: AUGMENTIN 875-1 EACH PO (07:25)
--- NOTE | 2020-08-10 22:13 | CON ---
[address] [address] CONSULTATION Name: MARYANN OSPINA JR Room: [address] IN M.R.#: [id number] Admission: 08/03/20 Attend Phys: Morgan Mota Discharge: 08/08/20 Date of : 48 Report #: [id number] THIS REPORT FOR: cc: Eduardo Jackman MD, Ravindra R. MD ~ Aniket Beavers MD DATE OF SERVICE: 08/05/2020 CONSULT REQUESTED BY: Des Toscano. INDICATION FOR CONSULTATION: Acute hypoxemic respiratory failure secondary to COVID-19. HISTORY OF PRESENT ILLNESS: A 70-year-old gentleman. He is recently retired respiratory therapist. He is a lifetime nonsmoker and he does have a previous history of colon cancer with previous history of colostomy and he does have multiple myeloma. The patient is now admitted here with acute respiratory failure secondary to COVID-19. The patient reports that he was diagnosed with COVID-19 about a week ago at an outside institution, but was not admitted. The patient states that he was also reported to be influenza positive at that time. The patient does have a family member who was also positive for COVID-19. Over the last week, he has reported increase in shortness of breath, which was slow, but progressive. There was no abrupt change on the day of admission, but he presented to the Emergency Room with worsening symptoms. I saw him in the Emergency Room last evening briefly and then I did reevaluate him this morning. Last night, he was requiring about 5 liters of oxygen to maintain O2 saturation in the low 90s. He also was in renal failure and he did receive fluid resuscitation. His creatinine has come down from 1.9 1.2 today. The patient's oxygen need in fact have also improved. The patient at the time of my evaluation this morning was maintaining O2 saturation around 95% on 3 liters nasal cannula and he was reporting improvement in shortness of breath. He does have markedly reduced platelets. He also does have elevated LFTs. His blood glucoses are also elevated. He does not have any significant swelling of lower extremities. There is no coughing. He does not report fever or chills. REVIEW OF SYSTEMS: The patient's review of systems for 12 points is negative except as mentioned above. PAST MEDICAL HISTORY: Colon cancer, status post colostomy placement back in 1992, multiple myeloma, initially diagnosed in June 2017, hypertension, appendectomy, cholecystectomy, subdural hemat[place] [address] CONSULTATION Name: MARYANN OSPINA JR Room: [address]#: [id number] Admission: 08/03/20 Attend Phys: Morgan Mota Discharge: 08/08/20 Date of : 48 Report #: [id number]. SOCIAL HISTORY: Lifetime nonsmoker. No known history of heavy alcohol use or illegal drug use. CURRENT MEDICATIONS: List in [facility] reviewed. HOME MEDICATIONS: List in [facility] reviewed. FAMILY HISTORY: There is a family member who was also positive for COVID-19. PHYSICAL EXAMINATION: GENERAL: Alert, awake and oriented, does not appear to be in any distress. VITAL SIGNS: Has a pulse of 89 and a blood pressure of 160/80, he is saturating 95%. He is on 3 liters nasal cannula. His heart rate is 89. His temperature is 37.0, which is his T-max. HEENT: Head is normocephalic and atraumatic. NECK: Does not show raised JVP. CHEST: Breath sounds bilaterally equal, mildly decreased. I do not hear any added sounds. HEART: Regular. There is no murmur. ABDOMEN: Soft and nontender. EXTREMITIES: Lower extremities show no edema, no calf tenderness. LABORATORY DATA: The patient's chest x-ray, which does show infiltrates bilaterally consistent with COVID-19 in [facility] reviewed. The patient's lab work in [facility] also reviewed. Elevated blood glucose is noted. Initial acute renal failure, now better noted. Marked thrombocytopenia with platelet count of only 18 noted. Coagulation studies also in [facility] reviewed. His influenza swab is negative. His COVID-19 antigen is negative, but COVID-19 PCR is positive. ASSESSMENT AND PLAN: 1. Acute hypoxemic respiratory failure secondary to COVID-19. Continue to titrate oxygen. We will add albuterol via inhaler. 2. COVID-19. He is on remdesivir. He is also on dexamethasone. As he is doing better, I went ahead and in fact cut down the dose of dexamethasone. Oncology note, all blood products need to be irradiated before administration. It is not known to me, if it will be possible to irradiated convalescent plasma. Regardless, he is improving, so I held off on administration of convalescent plasma at this time. 3. Pulmonary infiltrates. He is on Zosyn. We will reassess with a chest x-ray tomorrow morning. 4. Possible influenza. The patient reports that he may have tested positive [address] [address] CONSULTATION Name: MARYANN OSPINA JR Room: [address] IN [facility]#: [id number] Admission: 08/03/20 Attend Phys: Morgan Mota Discharge: 08/08/20 Date of : 48 Report #: [id number] recently as an outpatient for influenza. Our influenza swab here is negative. It is still be possible for him to have influenza. I considered ordering a viral respiratory panel, but I held off as it will not plant changer as it may take a couple of days for us to get the results back. He is already in isolation. His respiratory status is better. In case he was to worsen, then we can add Tamiflu. In the meantime, we can also try to get records from the other institution. 5. Acute renal failure. This is already better. The patient has been hydrated. 6. Severe thrombocytopenia. Oncology service is on the case. 7. Hyperglycemia/hyperkalemia. I would recommend primarily treating his hyperkalemia, but bringing his blood glucose down to the normal range with insulin. This should correct his potassium level as well. I did cut down his dexamethasone dose as above, which should help. 8. Metabolic acidosis. His bicarbonate is noted to be decreased to 16. It is possible that there is also a component of respiratory acidosis. Considering that he is overall doing better and his renal function is also better. I decided to only watch for now. I would avoid an arterial stick considering that he has very low platelets. In case, his bicarbonate remains low, then I may consider obtaining a peripheral venous blood gas tomorrow. Note that hyperglycemia may also be contributing to metabolic acidosis. There are multiple doses of insulin refused by the patient charted. This is the reason that I did not increase the sliding scale at this time, recommend administering insulin as indicated by the sliding scale. Multiple myeloma/past medical history of colon cancer, Oncology service on the case. Thanks for this consultation. <ELECTRONICALLY SIGNED> By: Aniket Beavers MD 08/10/20 2213 [id number] 2043Ailsa Beavers MD /nt
== END 2020-08-08 19:30 | disposition home health service (06) | DRG 177 ==
LOC: M.ERS 19:59 → M.TBA-ER 21:53 → M.ORTHSURG 08-04 20:53
PROVIDERS: Family Medicine; Internal Medicine; Nurse Practitioner Psychiatric/Mental Health; ADMIT Internal Medicine; ATTEND Internal Medicine
PROC: XW033E5 Introduction of Remdesivir Anti-infective into Peripheral Vein, Percutaneous Approach, New Technology Group 5 (ICD-10-PCS; principal; 2020-08-04)
DX: U07.1 COVID-19 (principal); J12.82 Pneumonia due to coronavirus disease 2019; J96.01 Acute respiratory failure with hypoxia; E87.2 Acidosis; N17.9 Acute kidney failure, unspecified; E44.0 Moderate protein-calorie malnutrition; E87.1 Hypo-osmolality and hyponatremia; I12.9 Hypertensive chronic kidney disease with stage 1 through stage 4 chronic kidney disease, or unspecified chronic kidney disease; D69.6 Thrombocytopenia, unspecified; R74.01 Elevation of levels of liver transaminase levels; N18.9 Chronic kidney disease, unspecified; R73.9 Hyperglycemia, unspecified; E87.5 Hyperkalemia; Z85.038 Personal history of other malignant neoplasm of large intestine; Z93.3 Colostomy status; Z90.49 Acquired absence of other specified parts of digestive tract; Z79.899 Other long term (current) drug therapy; Z88.8 Allergy status to other drugs, medicaments and biological substances; Z85.79 Personal history of other malignant neoplasms of lymphoid, hematopoietic and related tissues; Z68.31 Body mass index [BMI] 31.0-31.9, adult

== ENCOUNTER 2021-08-23 06:41 | Inpatient (IN) | payer OTHER ==
[~2021-08-23] VITALS: Ht 175.3 cm; Wt 94.5 kg
--- NOTE | ~2021-08-23 | CON ---
[address] [address] CONSULTATION Name: MARYANN OSPINA JR Room: [place] [address] ADM IN M.R.#: [id number] Admission: 08/23/21 Attend Phys: Hortensia Fernandez MD Discharge: Date of : 48 Report #: [id number] THIS REPORT FOR: cc: Eduardo Jackman MD, Ravindra R. MD Namin, Farid M. MD ~ cc: Eduardo Jackman MD DATE OF CONSULTATION: 08/23/2021 REASON FOR CONSULTATION: Small-bowel obstruction, history of colon cancer. Please note at the time of this dictation, the patient was seen and physically examined by myself. HISTORY OF PRESENT ILLNESS: This is a 71-year-old male who states he was doing well yesterday, having normal output out of his ostomy, which he empties out several times a day depending on what he eats. He has noticed a decrease in his output since last evening that it is not as significant. He had an abrupt onset of abdominal pain followed with nausea and dry heaves. He did not notice any bright red blood or any coffee-ground emesis. He has not noticed any bright red blood or melanotic stool out of his ostomy as well. The patient did undergo an EGD back in 2018 in which he had noted multiple duodenal ulcers that were clean based and he had a normal ileoscopy at that time. ALLERGIES: ALLOPURINOL. MEDICATIONS FROM HOME: Include valacyclovir, metoprolol, lisinopril, PreserVision soft gel Augmentin. PAST MEDICAL HISTORY: Significant for multiple myeloma, which he is undergoing treatment for the present time by Dr. Jackman, diabetes, colon cancer 29 years ago, hypertension and hyperlipidemia. PAST SURGICAL HISTORY: Partial colectomy, ventral incisional hernia, bilateral inguinal hernias. He has had an appendectomy and a subdural hematoma with ivonne holes in 06/2018. FAMILY HISTORY: Negative for any GI or female cancers. SOCIAL HISTORY: Denies any tobacco, illegal drug use and rarely drinks any alcohol. REVIEW OF SYSTEMS: Twelve-point review of systems is essentially negative except what is mentioned [place] [address] CONSULTATION Name: MARYANN OSPINA JR Room: [address] IN [facility]#: [id number] Admission: 08/23/21 Attend Phys: Hortensia Fernandez MD Discharge: Date of : 48 Report #: [id number] PHYSICAL EXAMINATION: VITAL SIGNS: Temperature 36, pulse 71, respirations 16, blood pressure 188/92. HEART: Regular rate and rhythm. LUNGS: Diminished, but clear. ABDOMEN: Soft, ____ absent in the upper and lower quads, mild distention with a point tenderness in the left upper and left lower quadrant area. LABORATORY DATA: Hemoglobin is 15.5, white count is 11.5, platelets are 77. Total bilirubin is 2.1, alkaline phosphatase 119, ALT 40, AST 36. BUN is 22, creatinine 1.3. GFR is 54. CT scan shows hepatic steatosis, cholelithiasis. He has a lot of stomach fluid distention in about 3 cm in the proximal small bowel with high-grade obstruction is noted. IMPRESSION: 1. Abdominal pain. 2. Nausea and vomiting. 3. Finish abnormal CT high-grade small-bowel obstruction. 4. Thrombocytopenia 5. History of colon cancer. PLAN: 1. NG to low intermittent suction. 2. No plans for any endoscopic evaluation at this time and will be available as needed. Thank you for allowing us to participate in this patient's care. Please do not hesitate to call with any questions regarding this consult. By: 1138 1814Al Gil MD /nt
[~2021-08-23 06:41] MED LIST changes: +ACYCLOVIR 200200 MG PO; +AUGMENTIN 875-1 EACH PO
[2021-08-23 06:43] VITALS: BP 188/92
[2021-08-23] MEDS ORDERED: LISINOPRIL10 MG PO (06:47)
[2021-08-23] MEDS ORDERED: TOPROL XL100 MG PO (06:47)
[2021-08-23 08:04] LABS: HEMATOCRIT 45.5 % (42.0-52.0); HEMOGLOBIN 15.5 gm/dL (14.0-18.0); MCH 33.6 pg (26.0-34.0); MPV 9.7 fl. (7.2-11.1); NUCLEATED RBCS 0 /100WBC; PLATELET COUNT* 77 thou/uL (150-400); RBC 4.59 mil/uL (4.50-6.00); RDW-CV 14.8 % (10.5-14.5); WBC 11.5 thou/uL (4.0-11.0)
[2021-08-23 08:57] LABS: ABSOLUTE LYMPHOCYTES 0.7 thou/uL (0.8-5.3); ABSOLUTE MONOCYTES 1.2 thou/uL (0.0-1.2); ABSOLUTE NEUTROPHILS 9.7 thou/uL (1.6-8.1)
[2021-08-23 08:58] LABS: PLATELET ESTIMATE ADEQUATE
[2021-08-23 09:13] LABS: ALBUMIN 3.7 g/dL (3.4-5.0); CALCIUM 8.6 mg/dL (8.5-10.1); CREATININE 1.3 mg/dL (0.6-1.3); POTASSIUM 4.1 mmol/L (3.5-5.1); TOTAL BILIRUBIN 2.1 mg/dL (<0.1-1.0); TOTAL PROTEIN 6.7 g/dL (6.4-8.2)
--- NOTE | 2021-08-23 09:57 | EKG ---
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
[2021-08-23 14:28] VITALS: BP 128/70
--- NOTE | 2021-08-23 17:07 | NUR ---
CALLED PT'S WITH UP DATES.
[2021-08-23 18:24] VITALS: BP 122/77
[2021-08-24 00:08] VITALS: BP 120/72
[2021-08-24] MEDS ORDERED: METFORMIN HCL500 M3 PO (02:07)
[2021-08-24 02:21] VITALS: BP 101/55
[2021-08-24 04:15] LABS: HEMATOCRIT 39.8 % (42.0-52.0); MCH 33.9 pg (26.0-34.0); MCHC 33.7 g/dL (28.0-37.0); MCV 100.7 fL (80.0-100.0); MPV 10.3 fl. (7.2-11.1); RBC 3.95 mil/uL (4.50-6.00); RDW-CV 15.2 % (10.5-14.5); WBC 4.4 thou/uL (4.0-11.0)
[2021-08-24 04:35] LABS: CALCIUM 8.4 mg/dL (8.5-10.1); CREATININE 1.9 mg/dL (0.6-1.3); MAGNESIUM 1.9 mg/dL (1.8-2.4); TOTAL BILIRUBIN 2.7 mg/dL (<0.1-1.0); TOTAL PROTEIN 5.6 g/dL (6.4-8.2)
--- NOTE | 2021-08-24 04:53 | NUR ---
ASSUMED CARE OF PATIENT AT APPROX 0020. PT A&OX4, VSS ON ROOM AIR. MED/SURG STATUS. NG TUBE IN PLACE TO LEFT NARE AT LIS. PT NPO. IV FLUIDS INFUSING ORDERED. NO CO PAIN AT THIS TIME. PT SLEEPING, WILL CONTINUE TO MONITOR.
[2021-08-24 05:06] LABS: HEMOGLOBIN 13.4 gm/dL (14.0-18.0)
[2021-08-24 05:07] LABS: GLYCOHEMOGLOBIN (HGB A1C) 6.6 % (4.8-5.6)
[2021-08-24 08:00] VITALS: BP 123/60
--- NOTE | 2021-08-24 15:11 | NUR ---
CM ASSESSMENT: PT A&O, AND INDEPENDENT WITH ADL'S. PT RESIDES AT HOME WITH SPOUSE. PT USES 0 DME. PT HAS PAST HX OF HH. PT HAS 0 HX OF SNF. NO CM D/C PLANNING NEEDS ANTICIPATED AT THIS TIME. CM WILL REMAIN AVAILABLE TO ASSIST AND FOLLOW NEEDED.
[2021-08-24 18:04] VITALS: BP 126/71
[2021-08-24 18:10] LABS: CALCIUM 8.8 mg/dL (8.5-10.1); CREATININE 1.7 mg/dL (0.6-1.3); DIRECT BILIRUBIN 0.5 mg/dL (<0.1-0.3); POTASSIUM 4.2 mmol/L (3.5-5.1)
[2021-08-24 20:20] VITALS: BP 142/78
[2021-08-25] VITALS: BP 138/75
[2021-08-25 04:32] LABS: HEMATOCRIT 37.1 % (42.0-52.0); HEMOGLOBIN 12.5 gm/dL (14.0-18.0); MCH 34.1 pg (26.0-34.0); MCHC 33.6 g/dL (28.0-37.0); MCV 101.7 fL (80.0-100.0); RBC 3.65 mil/uL (4.50-6.00); RDW-CV 15.1 % (10.5-14.5); WBC 4.9 thou/uL (4.0-11.0)
[2021-08-25 05:19] LABS: ALBUMIN 3.1 g/dL (3.4-5.0); CALCIUM 8.3 mg/dL (8.5-10.1); CREATININE 1.4 mg/dL (0.6-1.3); MAGNESIUM 2.1 mg/dL (1.8-2.4); POTASSIUM 3.6 mmol/L (3.5-5.1); TOTAL BILIRUBIN 2.5 mg/dL (<0.1-1.0)
--- NOTE | 2021-08-25 05:37 | NUR ---
PATIENT HAS REMAINED ALERT AND ORIENTED X 4. RESTING QUIETLY ON HOURLY ROUNDS. ASSIST WITH EMPTYING ILEOSTOMY OF 300 ML WATERY DARK GREEN OUTPUT FOR THE SHIFT OF THIS WRITING. DENIES NAUSEA. MEDICATED X 1 FOR HEADACHE. VITAL SIGNS STABLE. CONTINUE TO MONITOR.
[2021-08-25 08:00] VITALS: BP 161/87
--- NOTE | 2021-08-25 10:18 | NUR ---
PLAN OF CARE: PLAN FOR THE PT TO RETURN HOME WITH SELF-CARE AT D/C. NO CM D/C PLANNING NEEDS ANTICIPATED AT THIS TIME. PT INFORMS THAT HE IS OPEN TO HH IF ORDERED AT D/C. CM WILL REMAIN AVAILABLE TO ASSIST AND FOLLOW NEEDDED.
[2021-08-25 12:08] VITALS: BP 159/76
[2021-08-25 13:51] LABS: INR 1.2; PROTIME 12.2 Seconds (9.20-11.50)
[2021-08-25 16:00] VITALS: BP 129/71
[2021-08-25 20:00] VITALS: BP 164/86
[2021-08-26 04:00] VITALS: BP 130/82
[2021-08-26 05:50] LABS: ABSOLUTE LYMPHOCYTES 0.9 thou/uL (0.8-5.3); ABSOLUTE MONOCYTES 0.5 thou/uL (0.0-1.2); ABSOLUTE NEUTROPHILS 3.6 thou/uL (1.6-8.1); BASOPHILS 0.4 %; EOSINOPHILS 0.7 %; HEMATOCRIT 36.9 % (42.0-52.0); HEMOGLOBIN 12.5 gm/dL (14.0-18.0); MCV 100.3 fL (80.0-100.0); MONOCYTES 9.6 %; MPV 10.1 fl. (7.2-11.1); NUCLEATED RBCS 0 /100WBC; PLATELET COUNT* 69 thou/uL (150-400); POLYS 71.3 %; RBC 3.68 mil/uL (4.50-6.00); RDW-CV 14.8 % (10.5-14.5)
--- NOTE | 2021-08-26 05:53 | NUR ---
ASSUMED CARE AT 1930. PATIENT RESTED IN BED MUCH OF SHIFT, WALKED IN HALLS SOME. UP AD FAHAD. NO C/O PAIN. SALINE LOCK INTECT. COLOSTOMY INTACT. NO C/O PAIN. HOURLY ROUNDS CONTINUE. CALL LITE IN REACH. MED SURG STATUS.
[2021-08-26 07:02] LABS: ALBUMIN 3.2 g/dL (3.4-5.0); CALCIUM 8.3 mg/dL (8.5-10.1); CREATININE 1.2 mg/dL (0.6-1.3); POTASSIUM 3.7 mmol/L (3.5-5.1); TOTAL PROTEIN 6.2 g/dL (6.4-8.2)
[2021-08-26 08:00] VITALS: BP 163/72
[2021-08-26 12:18] VITALS: BP 135/80
[2021-08-26 17:03] VITALS: BP 133/64
--- NOTE | 2021-08-26 18:47 | NUR ---
PT WILL PROBABLY GO HOME TOMORROW BUT WANTS TO MAKE SURE HIS REGULAR DIET IS WELL TOLERATED BEFORE GOING HOME. PT UP WITH SBA TO HIS RECLINER CHAIR. FOR ALL MEALS. VSS AFEBRILE. ACCU CHECKS HAVE BEEN BELOW 200 NO SS INSULIN GIVEN. WILL CONTINUE TO MONITOR PLAN OF CARE.
[2021-08-26 19:57] VITALS: BP 159/79
[2021-08-27] VITALS: BP 156/77
[2021-08-27 03:46] LABS: HEMOGLOBIN 12.7 gm/dL (14.0-18.0); MCH 33.8 pg (26.0-34.0); MCHC 33.3 g/dL (28.0-37.0); MCV 101.5 fL (80.0-100.0); RBC 3.74 mil/uL (4.50-6.00); RDW-CV 14.5 % (10.5-14.5); WBC 5.4 thou/uL (4.0-11.0)
[2021-08-27 03:53] LABS: INR 1.1; PROTIME 11.7 Seconds (9.20-11.50)
[2021-08-27 03:58] LABS: CALCIUM 8.3 mg/dL (8.5-10.1); CREATININE 1.2 mg/dL (0.6-1.3)
[2021-08-27 09:23] VITALS: BP 140/60
[2021-08-27 09:41] VITALS: BP 140/60
--- NOTE | 2021-08-27 09:57 | NUR ---
DISCONTINUE IV AND PT UNDERSTANDS ALL FOLLOW UP ORDERS. WILL DISCHARGE TO HOME.
== END 2021-08-27 10:33 | disposition home or self-care (01) | DRG 388 ==
LOC: M.ERS 06:41 → M.TBA-ER 10:28 → M.2W 10:28 → M.TBA-ER 11:00 → M.2W 08-24 00:15
PROVIDERS: Family Medicine; Internal Medicine; Student in an Organized Health Care Education/Training Program; Surgery; ADMIT Internal Medicine; ATTEND Internal Medicine
PROC: 0D9670Z Drainage of Stomach with Drainage Device, Via Natural or Artificial Opening (ICD-10-PCS; principal; 2021-08-23)
DX: K56.600 Partial intestinal obstruction, unspecified as to cause (principal); N17.0 Acute kidney failure with tubular necrosis; C90.00 Multiple myeloma not having achieved remission; K43.2 Incisional hernia without obstruction or gangrene; N18.9 Chronic kidney disease, unspecified; I12.9 Hypertensive chronic kidney disease with stage 1 through stage 4 chronic kidney disease, or unspecified chronic kidney disease; E80.6 Other disorders of bilirubin metabolism; E78.5 Hyperlipidemia, unspecified; D69.6 Thrombocytopenia, unspecified; R73.9 Hyperglycemia, unspecified; Z20.822 Contact with and (suspected) exposure to COVID-19; Z85.038 Personal history of other malignant neoplasm of large intestine; Z90.49 Acquired absence of other specified parts of digestive tract; Z93.2 Ileostomy status; Z79.899 Other long term (current) drug therapy; Z88.8 Allergy status to other drugs, medicaments and biological substances